=== PATIENT | female | born 1960 | race Caucasian/White ===

== ENCOUNTER → 2018-11-06 | Outpatient (CLI) | payer OTHER ==
[~2018-11-06] MED LIST: ALBU.083IS IH; ALBU90OI61 INH; ALPR.25 PO; ALPR1 PO; AMIT75 PO; AZIT250 PO; Adult Low Dose81 MG PO; BENZ100A PO; BUDE10.22 IH; BUME2 PO; Bactrim Ds Tab1 EACH PO; CARV25 PO; CARV3.125 PO; CEPH500 PO; CHOL10002 PO; CYCL10 PO; Colace100 MG PO; DULO30 PO; DULO60 PO; Dazidox10 MG PO; ESTR.05P TOP; ESTR2 PO; EZET10-10 PO; FEBU40TA PO; FENO48 PO; FEXPSEER PO; FURO80 PO; GABA600 PO; GEMF600 PO; GLIM2 PO; Gas Relief 8080 MG PO; HYDACE10B PO; INDO50 PO; INS50/50I SC; INSLI100I SC; INSLI75/25 SC; INSR10I; LACTULOSE10 GM/15 M PO; LANS30EC PO; LEVSOD100 PO; LEVSOD200 PO; LEVSOD50 PO; LORA10ER PO; METF500 PO; METF500C PO; METO2.5 PO; MIRALAX119 GM PO; NAPR500 PO; NASACORT10.8 ML; NICO14TP TOP; NYST100P TOP; Norco 5-325 Ta1 EACH PO; OMEG1CAP30 PO; OXYC30 PO; OXYC30ER PO; OXYGEN; POLY17UD PO; POTA10T PO; POTCHL20ER PO; PREG150 PO; PROVASTATIN; Percocet 5-3251 EACH PO; RANI150 PO; SERT100 PO; SIMV40 PO; SITA100T2 PO; SPIR25 PO; Synthroid/Le0.125 MG PO; TOPI100 PO; TRADJENTA5 MG PO; TRIA55OI; TRIA80TC; Valium5 MG PO; Ventolin Soln3 ML INH; Zofran Odt8 MG SL; [UNRECOGNIZED DRUG - OTHER]; [UNRECOGNIZED DRUG - OTHER] PO; [UNRECOGNIZED DRUG - REMARK]
== END | disposition home or self-care (01) ==
LOC: LAB EV 10:18 → LAB SHORT 10:18
DX: L03.114 Cellulitis of left upper limb (principal)
CPT/HCPCS: 87070; 87075; 87077; 87186; 87205

== ENCOUNTER 2018-11-24 13:50 | Emergency (ER) | payer OTHER ==
[~2018-11-24] VITALS: Ht 172.7 cm; Wt 117.9 kg
[2018-11-24 16:23] LABS: BASOPHILS ABSOLUTE AUTO 0.08 K/mm3 (0.00-0.23); BASOPHILS PERCENT AUTO 1 % (0-2); EOSINOPHILS ABSOLUTE AUTO 0.41 K/mm3 (0.00-0.68); EOSINOPHILS PERCENT AUTO 3 % (0-6); Hematocrit 35.5 % (33.0-51.0); IMMATURE GRAN ABSOLUTE AUTO 0.22 K/mm3 (0.00-0.10); IMMATURE GRAN PERCENT AUTO 1 % (0-1); LYMPHOCYTES ABSOLUTE AUTO 2.91 K/mm3 (0.84-5.20); LYMPHOCYTES PERCENT AUTO 18 % (21-46); MONOCYTES ABSOLUTE AUTO 0.94 K/mm3 (0.16-1.47); MONOCYTES PERCENT AUTO 6 % (4-13); Mean Corpuscular HGB 33.8 pg (26.0-34.0); Mean Corpuscular Volume 109 fL (80-100); Mean Platelet Volume 10.9 fL (9.1-12.4); NEUTROPHILS ABSOLUTE AUTO 11.93 K/mm3 (1.96-9.15); NEUTROPHILS PERCENT AUTO 72 % (41-73); NRBC ABSOLUTE 0.02 K/mm3 (0.00-0.02); NRBC Auto 0.1 /100 WBC (0.0-0.2); Platelet Count 309 K/mm3 (150-400); RDW Coefficient Variation 15.5 % (11.7-14.2); RDW Standard Deviation 60.7 fL (35.1-46.3); Red Blood Cell Count 3.25 M/mm3 (3.80-5.20); White Blood Cell Count 16.49 K/mm3 (4.00-11.30)
[2018-11-24 16:36] LABS: Bun/Creatinine Ratio 9.1 (12.0-20.0); Calcium, Blood 9.4 mg/dL (8.5-10.1); Creatinine, Blood 6.57 mg/dL (0.40-1.00); Potassium, Blood 4.8 mmol/L (3.5-5.5)
[2018-11-24 16:58] LABS: International Normalized Ratio 1.02; Prothrombin Time Results 10.5 Sec (9.7-11.5)
[2018-11-26] MEDS ORDERED: OXYC10ER PO (08:58)
[2018-11-26] MEDS ORDERED: TOUJEO SOL300 UNIT/1 SC (09:00)
[2018-11-26] MEDS ORDERED: GAVILAX17 GM PO (09:00)
[2018-11-26] MEDS ORDERED: Stool Softener250 MG PO (09:01)
[2018-11-26] MEDS ORDERED: Zanaflex4 M1 PO (09:01)
[2018-11-26] MEDS ORDERED: NASAL ALLERGY16.9 ML (09:02)
[2018-11-26] MEDS ORDERED: Apidra100 UNIT/2 SC (09:05)
[2018-11-26] MEDS ORDERED: SPIRIVA RESPIMAT4 G1 INH (09:06)
[2018-11-26] MEDS ORDERED: ACID REDUCER 1150 MG PO (09:07)
[2018-11-26] MEDS ORDERED: ATOR40TA PO (09:07)
[2018-11-26] MEDS ORDERED: NICO21TP PO (09:08)
[2018-11-26] MEDS ORDERED: HIBICLENS120 ML EXT (09:08)
[2018-11-26] MEDS ORDERED: CLIN100S TOP (09:10)
[2018-11-26] MEDS ORDERED: BRINTELLIX20 MG PO (09:10)
[2018-11-26] MEDS ORDERED: ROPI1 PO (09:11)
[2018-11-26] MEDS ORDERED: FOLI1 PO (09:11)
[2018-11-26] MEDS ORDERED: Novolin N SC (09:13)
[2018-11-26] MEDS ORDERED: MIDO5 PO (09:13)
[2018-11-26] MEDS ORDERED: BENZ100A PO (09:14)
[2018-11-26] MEDS ORDERED: GABA100 PO (09:14)
== END 2018-11-24 17:25 | disposition home or self-care (01) ==
LOC: ER 13:50
PROVIDERS: Emergency Medicine
DX: T82.838A Hemorrhage due to vascular prosthetic devices, implants and grafts, initial encounter (principal); E11.9 Type 2 diabetes mellitus without complications; F41.9 Anxiety disorder, unspecified; J44.9 Chronic obstructive pulmonary disease, unspecified; Z88.0 Allergy status to penicillin; Z88.5 Allergy status to narcotic agent; Z88.8 Allergy status to other drugs, medicaments and biological substances; Z79.899 Other long term (current) drug therapy; Z79.4 Long term (current) use of insulin; Z79.82 Long term (current) use of aspirin
CPT/HCPCS: 36415; 80048; 85025; 85610; 96374; 99283-25; J1170

== ENCOUNTER 2018-11-26 11:42 | Observation (INO) | payer OTHER ==
[~2018-11-26] VITALS: Ht 172.7 cm; Wt 127.2 kg
[~2018-11-26 11:42] MED LIST changes: +ACID REDUCER 1150 MG PO; +ATOR40TA PO; +Apidra100 UNIT/2 SC; +BRINTELLIX20 MG PO; +CLIN100S TOP; +FOLI1 PO; +GABA100 PO; +GAVILAX17 GM PO; +HIBICLENS120 ML EXT; +MIDO5 PO; +NASAL ALLERGY16.9 ML; +NICO21TP PO; +Novolin N SC; +OXYC10ER PO; +ROPI1 PO; +SPIRIVA RESPIMAT4 G1 INH; +Stool Softener250 MG PO; +TOUJEO SOL300 UNIT/1 SC; +Zanaflex4 M1 PO
[2018-11-26] MEDS ORDERED: HYSINGLA ER30 MG PO (12:42)
[2018-11-26] MEDS ORDERED: VOLTAREN100 GM TOP (12:43)
--- NOTE | 2018-11-26 17:50 | NUR ---
ASSUMED CARE OF PT. PT. SLEEPING UPON ARRIVAL TO UNIT, AWAKENS TO VERBAL STIMULI. PT. CURRENLTY ON 4LNC. SPO2 96%. PT. DROWSY BUT ANSWERING QUESTIONS. NSR, HR IN THE 80S. BP WNL. PT. LEFT ARM HAS NON PITTING EDEMA PER [facility]ART CENTER STAFF THIS WAS PRESENT PRIOR TO PROCEDURE. PT. LEFT ARM WRAPPED TO PROTECT WOUND, WAS DRESSED BY [facility]ART [facility]ENTER STAFF PER DR. PARRY. PT. HAS 2 ACCESS SITES TO RIGHT ARM, SUTURE TO LEFT AXILLARY TO BE REMOVED AT 1900. PER DR. PARRY DIALYSIS TO BE DONE TONIGHT. DR. VENTURA CONSULTED. SPOKE WITH DR. VENTURA, LABS ORDERED AND DIALYSIS NURSE NOTIFIED. PT. HAS DIALYSIS PORT TO RIGHT UPPER CHEST WALL. DR. PARRY WOULD ALSO LIKE FOR PT TO BE SEEN BY WOUND CARE CLINIC REGARDING WOUND TO LEFT UPPER ARM. NURSE NOTIFY PLACED TO CONTACT WOUND CARE IN THE AM.
[2018-11-26 18:21] LABS: Hematocrit 33.7 % (33.0-51.0); Hemoglobin 10.1 g/dL (11.5-16.0)
--- NOTE | 2018-11-26 18:38 | NUR ---
LABS CALLED TO DR. VENTURA PER REQUEST. DIALYSIS NURSE AT BEDSIDE ARM REDRESSED SO WOUND COULD BE ASSESSED. NEW DRESSING APPLIED.
--- NOTE | 2018-11-26 19:24 | NUR ---
BEDSIDE REPORT FROM GANESH BENZ. PT SLEEPING AND AWAKENS TO LIGHT STIMULI. PT FOLLOWING DIRECTIONS BUT FALLS BACK TO SLEEP. PT VSS. SALES CLERK FOOD AT BEDSIDE STARTING DIALYSIS.
--- NOTE | 2018-11-26 19:50 | NUR ---
DR. VENTURA AT BEDSIDE. PT AWAKENS AND SPEAKS WITH DR. VENTURA. VERBAL ORDERS FROM DR. VENTURA TO GIVE LEVAQUIN 500mg IV X1 NOW GIVEN. SPOUSE CONTINUES AT BEDSIDE. RT NOTIFED RE: PT'S BIPAP MACHINE AT BEDSIDE. WILL CONTINUE TO MONITOR.
--- NOTE | 2018-11-26 20:33 | NUR ---
DR. VENTURA NOTIFIED. VERIFIED WHETHER WANTED HOSPITALIST CONSULT- "NOT AT THIS TIME". ORDERS GIVEN TO ALLOW PT TO USE HOME INSULIN APIDRA AND GLARGINE. FOR KT ORDER PT HER NEURONTIN, AMITRIPTILINE, LIPITOR, NOVOLIN N, MIDODRINE, REQUIP, AND ZANAFLEX.
--- NOTE | 2018-11-26 22:13 | NUR ---
PT DONE WITH DIALYSIS AND ASSISTED UP TO BSC. PT AGITATED WITH SISTER AT BEDSIDE. BLOOD GLUCOSE TAKEN AND WAS 51. PT REMAINS A+O AND SOCIALIZING WITH FAMILY. ORANGE JUICE 8oz GIVEN. PT HAS SPOUSE GETTING FOOD FROM [employer]. WILL CONTINUE TO MONITOR.
--- NOTE | 2018-11-26 22:38 | NUR ---
PT REMAINS ON BSC PER PT SINCE, "IT TAKES ME A WHILE TO GO". PT STATED FEELS BETTER AFTER DRINKING HER ORANGE JUICE. PT STATED WANTS TO TAKE HER AMYTRIPTILINE AND NOVOLIN N INSULIN WHEN SHE'S READY TO GO TO SLEEP. PT CURSING AND STATING SEVERAL TIMES THAT SHE'S ANGRY THAT SHE IS IN THE HOSPITAL. PT STATED THAT SHE HAS PTSD AND, "THEY KNOW I DON'T LIKE STAYING HERE". PT EASILY CONSOLED WITH EXPLANATION AND SISTER REMAINS AT BEDSIDE WHICH SEEMS TO CALM THE PT. PT CURRENTLY EATING MEAL FROM [employer]. WILL CONTINUE TO MONITOR.
--- NOTE | 2018-11-27 03:35 | NUR ---
[id number] PT BACKT TO BED WITH ONE-PERSON ASSIST. PT CONTINUING TO CURSE AT BEING HERE IN THE HOSPITAL THEN APLOLOGIZES TO THIS RN. PT FELL ASLEEP AFTER MEDICATED WITH FENTANYL 25mcg FOR C/O L UPPER ARM PAIN. PT TOLERATED HOME C-PAP FOR PAST THREE HOURS. CURRENTLY PT ON O2 3L VIA N/C. PT S/O CONTINUES AT BEDSIDE AND WAS GIVEN A COT TO SLEEP ON. PT REMAINS ON ASSISTED VENT SETTING. WILL CONTINUE TO MONITOR.
--- NOTE | 2018-11-27 08:56 | NUR ---
DR. PARRY IN TO SEE PT HIS AM PLANS FOR DISCHARGE THIS MORNING. PT TO HAVE OUT PATIENT DIALYSIS THIS AFTERNOON AT 2PM. PT REFUSES MORNING MEDICATIONS REPORTING SHE WILL TAKE THEM AT HOME UPON DISCHARGE. PT. VSS THIS AM. PT. PREPARED FOR DISCHARGE, HOME MEDS RETURNED AND BELONGINGS GATHERED. ASSISTED PT TO GET DRESSED AND IVS REMOVED. AWAITING DISCHARGE ORDERS AT THIS TIME.
--- NOTE | 2018-11-27 09:47 | NUR ---
DISCHARGE DR. PARRY HAVING DIFFICULTY [facility] DISCHARGE PAPERWORK. PER DR. PARRY PT TO CONTINUE WITH HOME MEDICATIONS. NO CHANGES TO THEM. PT. TO OBTAIN ANTIBIOTIC ORDER FROM DR. VENTURA AT DIALYSIS TODAY. PT. VERBALIZED UNDERSTANDING OF WOUND CARE INSTRUCTIONS AND FOLLOW UP. DISCHARGED PER DR. PARRY. SMOKING CESSATION INFORMATION PROVIDED. VSS UPON DISCHARGE.
== END 2018-11-27 09:56 | disposition home or self-care (01) ==
LOC: MHTC 11:42 → ICUE 11:42 → MHTC 11:43 → ICUE 15:49 → MHTC 17:35 → ICUE 17:36
PROVIDERS: Internal Medicine Nephrology; ADMIT Radiology Diagnostic Radiology
DX: T82.838A Hemorrhage due to vascular prosthetic devices, implants and grafts, initial encounter (principal); I13.2 Hypertensive heart and chronic kidney disease with heart failure and with stage 5 chronic kidney disease, or end stage renal disease; I50.9 Heart failure, unspecified; E11.22 Type 2 diabetes mellitus with diabetic chronic kidney disease; N18.6 End stage renal disease; F32.9 Major depressive disorder, single episode, unspecified; E11.42 Type 2 diabetes mellitus with diabetic polyneuropathy; J44.9 Chronic obstructive pulmonary disease, unspecified; F41.9 Anxiety disorder, unspecified; M79.7 Fibromyalgia; E03.9 Hypothyroidism, unspecified; E78.5 Hyperlipidemia, unspecified; F11.20 Opioid dependence, uncomplicated; E11.51 Type 2 diabetes mellitus with diabetic peripheral angiopathy without gangrene; E87.70 Fluid overload, unspecified; K21.9 Gastro-esophageal reflux disease without esophagitis; Z88.0 Allergy status to penicillin; Z88.1 Allergy status to other antibiotic agents; Z88.8 Allergy status to other drugs, medicaments and biological substances; Z79.899 Other long term (current) drug therapy; Z79.82 Long term (current) use of aspirin
CPT/HCPCS: 36415; 36901; 76937; 82947; 84132; 85014; 85018; 94640; 99152; 99153; C1769; C1894; G0257; G0378; J1644; J1815; J1956; J2250; J3010; J3370; J7030; J7050; Q9967

== ENCOUNTER 2018-12-03 00:16 | Day surgery (SDC) | payer OTHER ==
[~2018-12-03 00:16] MED LIST changes: +HYSINGLA ER30 MG PO; +VOLTAREN100 GM TOP
== END 2018-12-03 22:38 | disposition home or self-care (01) ==
LOC: WOUND 00:16
DX: T81.31XA Disruption of external operation (surgical) wound, not elsewhere classified, initial encounter (principal); N18.6 End stage renal disease; Z72.0 Tobacco use; E11.9 Type 2 diabetes mellitus without complications; Z79.4 Long term (current) use of insulin; Z88.0 Allergy status to penicillin; Z99.2 Dependence on renal dialysis
CPT/HCPCS: G0463

== ENCOUNTER 2018-12-04 08:11 | Day surgery (SDC) | payer OTHER | END 2018-12-04 22:49 | disposition home health service (06) | LOC: WOUND 08:11 | DX: T81.31XA Disruption of external operation (surgical) wound, not elsewhere classified, initial encounter (principal); S41.102A Unspecified open wound of left upper arm, initial encounter; E11.22 Type 2 diabetes mellitus with diabetic chronic kidney disease; E11.49 Type 2 diabetes mellitus with other diabetic neurological complication; N18.6 End stage renal disease; Z99.2 Dependence on renal dialysis; Z79.4 Long term (current) use of insulin; I50.9 Heart failure, unspecified; G47.33 Obstructive sleep apnea (adult) (pediatric); J44.9 Chronic obstructive pulmonary disease, unspecified; Z72.0 Tobacco use | CPT/HCPCS: G0463 ==

== ENCOUNTER 2018-12-05 14:45 | Day surgery (SDC) | payer OTHER | END 2018-12-05 23:03 | disposition home health service (06) | LOC: WOUND 14:45 | DX: T81.31XA Disruption of external operation (surgical) wound, not elsewhere classified, initial encounter (principal); S41.102A Unspecified open wound of left upper arm, initial encounter; E11.22 Type 2 diabetes mellitus with diabetic chronic kidney disease; I13.2 Hypertensive heart and chronic kidney disease with heart failure and with stage 5 chronic kidney disease, or end stage renal disease; I50.9 Heart failure, unspecified; N18.6 End stage renal disease; Z99.2 Dependence on renal dialysis; Z79.4 Long term (current) use of insulin; E11.49 Type 2 diabetes mellitus with other diabetic neurological complication; G47.33 Obstructive sleep apnea (adult) (pediatric); J44.9 Chronic obstructive pulmonary disease, unspecified; Z72.0 Tobacco use ==

== ENCOUNTER 2018-12-08 15:15 | Day surgery (SDC) | payer OTHER | END 2018-12-08 22:42 | disposition home or self-care (01) | LOC: WOUND 15:15 | DX: T81.31XA Disruption of external operation (surgical) wound, not elsewhere classified, initial encounter (principal); N18.6 End stage renal disease; Z72.0 Tobacco use; E11.9 Type 2 diabetes mellitus without complications; Z79.4 Long term (current) use of insulin; Z99.2 Dependence on renal dialysis ==

== ENCOUNTER 2018-12-12 12:30 | Day surgery (SDC) | payer OTHER | END 2018-12-12 22:37 | disposition home or self-care (01) | LOC: WOUND 12:30 | DX: T81.31XD Disruption of external operation (surgical) wound, not elsewhere classified, subsequent encounter (principal); N18.6 End stage renal disease; Z72.0 Tobacco use; E11.9 Type 2 diabetes mellitus without complications; Z79.4 Long term (current) use of insulin; Z99.2 Dependence on renal dialysis ==

== ENCOUNTER 2018-12-19 15:00 | Day surgery (SDC) | payer OTHER | END 2018-12-19 22:47 | disposition home or self-care (01) | LOC: WOUND 15:00 | PROC: 0HBJXZZ Excision of Left Upper Leg Skin, External Approach (ICD-10-PCS; principal; 2018-12-19) | PROC: 2W1BX6Z Compression of Left Upper Arm using Pressure Dressing (ICD-10-PCS; principal; 2018-12-19) | DX: T81.31XA Disruption of external operation (surgical) wound, not elsewhere classified, initial encounter (principal); E11.22 Type 2 diabetes mellitus with diabetic chronic kidney disease; N18.6 End stage renal disease; Z79.4 Long term (current) use of insulin; E78.00 Pure hypercholesterolemia, unspecified; I50.9 Heart failure, unspecified ==

== ENCOUNTER 2018-12-26 14:30 | Day surgery (SDC) | payer OTHER | END 2018-12-26 22:53 | disposition home or self-care (01) | LOC: WOUND 14:30 | DX: T81.31XA Disruption of external operation (surgical) wound, not elsewhere classified, initial encounter (principal); S41.102A Unspecified open wound of left upper arm, initial encounter; E11.22 Type 2 diabetes mellitus with diabetic chronic kidney disease; N18.6 End stage renal disease; Z72.0 Tobacco use ==

== ENCOUNTER 2019-01-02 14:30 | Day surgery (SDC) | payer OTHER | END 2019-01-02 23:04 | disposition home or self-care (01) | LOC: WOUND 14:30 | DX: T81.31XA Disruption of external operation (surgical) wound, not elsewhere classified, initial encounter (principal); N18.6 End stage renal disease; Z72.0 Tobacco use; E11.9 Type 2 diabetes mellitus without complications; Z79.4 Long term (current) use of insulin; Z99.2 Dependence on renal dialysis ==

== ENCOUNTER 2019-01-30 00:12 | Day surgery (SDC) | payer OTHER | END 2019-01-30 12:00 | disposition home or self-care (01) | LOC: WOUND 00:12 | DX: T81.31XA Disruption of external operation (surgical) wound, not elsewhere classified, initial encounter (principal); E11.22 Type 2 diabetes mellitus with diabetic chronic kidney disease; N18.6 End stage renal disease; G47.33 Obstructive sleep apnea (adult) (pediatric); E66.01 Morbid (severe) obesity due to excess calories; J44.9 Chronic obstructive pulmonary disease, unspecified; I89.0 Lymphedema, not elsewhere classified; D63.1 Anemia in chronic kidney disease; M10.9 Gout, unspecified; M19.90 Unspecified osteoarthritis, unspecified site; E11.40 Type 2 diabetes mellitus with diabetic neuropathy, unspecified; Z72.0 Tobacco use ==

== ENCOUNTER 2019-02-06 00:27 | Day surgery (SDC) | payer OTHER | END 2019-02-06 23:01 | disposition home or self-care (01) | LOC: WOUND 00:27 | DX: T81.31XA Disruption of external operation (surgical) wound, not elsewhere classified, initial encounter (principal); E11.22 Type 2 diabetes mellitus with diabetic chronic kidney disease; N18.6 End stage renal disease; D63.1 Anemia in chronic kidney disease; E11.40 Type 2 diabetes mellitus with diabetic neuropathy, unspecified; G47.33 Obstructive sleep apnea (adult) (pediatric); E78.00 Pure hypercholesterolemia, unspecified; E66.01 Morbid (severe) obesity due to excess calories; J44.9 Chronic obstructive pulmonary disease, unspecified; M19.90 Unspecified osteoarthritis, unspecified site; M10.9 Gout, unspecified; I50.9 Heart failure, unspecified; Z79.899 Other long term (current) drug therapy; Z72.0 Tobacco use; Z68.41 Body mass index [BMI] 40.0-44.9, adult | CPT/HCPCS: G0463 ==

== ENCOUNTER 2019-02-13 00:52 | Day surgery (SDC) | payer OTHER | END 2019-02-13 22:47 | disposition home or self-care (01) | LOC: WOUND 00:52 | DX: T81.31XA Disruption of external operation (surgical) wound, not elsewhere classified, initial encounter (principal); E11.22 Type 2 diabetes mellitus with diabetic chronic kidney disease; N18.6 End stage renal disease; G47.33 Obstructive sleep apnea (adult) (pediatric); E78.00 Pure hypercholesterolemia, unspecified; J44.9 Chronic obstructive pulmonary disease, unspecified; I50.9 Heart failure, unspecified; E11.40 Type 2 diabetes mellitus with diabetic neuropathy, unspecified; M10.9 Gout, unspecified; M19.90 Unspecified osteoarthritis, unspecified site ==

== ENCOUNTER 2019-02-20 08:50 | Day surgery (SDC) | payer OTHER | END 2019-02-20 23:24 | disposition home or self-care (01) | LOC: WOUND 08:50 | DX: T81.31XA Disruption of external operation (surgical) wound, not elsewhere classified, initial encounter (principal); E11.22 Type 2 diabetes mellitus with diabetic chronic kidney disease; N18.6 End stage renal disease; D63.1 Anemia in chronic kidney disease; E11.40 Type 2 diabetes mellitus with diabetic neuropathy, unspecified; I50.9 Heart failure, unspecified; J44.9 Chronic obstructive pulmonary disease, unspecified; M19.90 Unspecified osteoarthritis, unspecified site; G47.33 Obstructive sleep apnea (adult) (pediatric); E78.00 Pure hypercholesterolemia, unspecified; E66.01 Morbid (severe) obesity due to excess calories; Z68.41 Body mass index [BMI] 40.0-44.9, adult; Z99.2 Dependence on renal dialysis; Z72.0 Tobacco use | CPT/HCPCS: G0463 ==

== ENCOUNTER → 2019-05-19 | Outpatient (CLI) | payer OTHER ==
[~2019-05-19] MED LIST changes: +ALBU2.5V5 INH; +ALBU90OI INH; +Apidra100 UNIT/2; +Aspir 8181 MG PO; +Bumetanide2 MG; +Calcium Acetat667 MG PO; +DOC250 PO; +GABA100; +GEMF600; +HIBICLENS120 ML; +LEVO-T175 MCG; +LEVO-T175 MCG PO; +MIRALAX17 GM PO; +MOVANTIK25 MG PO; +Midodrine HCl5 MG PO; +NASACORT10.8 ML INH; +PROAIR RESPICL90 MCG INH; +Renal Caps Softg1 MG PO; +Ropinirole HCl1 MG PO; +SPIRIVA RESPIMAT4 GM INH; +TOUJEO SOL300 UNIT/1; +Uloric80 MG PO; +VITAMIN D34000 UNIT PO; +ZINC50 M2 PO
[2019-05-19 16:49] LABS: Vancomycin, Random 5.5 ug/mL
== END | disposition home or self-care (01) ==
LOC: LAB DAV 16:17
PROVIDERS: Internal Medicine Nephrology
DX: Z51.81 Encounter for therapeutic drug level monitoring (principal); Z79.899 Other long term (current) drug therapy
CPT/HCPCS: 80202

== ENCOUNTER 2019-08-06 13:29 | Day surgery (SDC) | payer OTHER ==
[~2019-08-06] VITALS: Ht 172.7 cm; Wt 120.5 kg
== END 2019-08-06 16:21 | disposition home or self-care (01) ==
LOC: ORSCSDS 13:29
PROVIDERS: Internal Medicine Gastroenterology
PROC: 0DBL8ZX Excision of Transverse Colon, Via Natural or Artificial Opening Endoscopic, Diagnostic (ICD-10-PCS; principal; 2019-08-06 14:30)
PROC: 0DBN8ZX Excision of Sigmoid Colon, Via Natural or Artificial Opening Endoscopic, Diagnostic (ICD-10-PCS; principal; 2019-08-06 14:30)
PROC: 0DBK8ZX Excision of Ascending Colon, Via Natural or Artificial Opening Endoscopic, Diagnostic (ICD-10-PCS; principal; 2019-08-06 14:30)
PROC: 0DBM8ZX Excision of Descending Colon, Via Natural or Artificial Opening Endoscopic, Diagnostic (ICD-10-PCS; principal; 2019-08-06 14:30)
DX: Z12.11 Encounter for screening for malignant neoplasm of colon (principal); Z86.010 Personal history of colon polyps; D12.2 Benign neoplasm of ascending colon; D12.3 Benign neoplasm of transverse colon; D12.4 Benign neoplasm of descending colon; K63.5 Polyp of colon; K57.30 Diverticulosis of large intestine without perforation or abscess without bleeding; K64.8 Other hemorrhoids; K64.4 Residual hemorrhoidal skin tags; E11.22 Type 2 diabetes mellitus with diabetic chronic kidney disease; I12.0 Hypertensive chronic kidney disease with stage 5 chronic kidney disease or end stage renal disease; N18.6 End stage renal disease; Z79.4 Long term (current) use of insulin; E03.9 Hypothyroidism, unspecified; M79.7 Fibromyalgia; E78.5 Hyperlipidemia, unspecified; F17.210 Nicotine dependence, cigarettes, uncomplicated; Z79.899 Other long term (current) drug therapy; Z79.82 Long term (current) use of aspirin
CPT/HCPCS: 82947; 88305; J2704; J7030; J7120